=== PATIENT | female | born 1945 | race Caucasian/White ===

== ENCOUNTER → 2016-05-25 | Outpatient (CLI) | payer OTHER ==
[~2016-05-25] MED LIST: ALBU2.5V14 IH; ALPR0.25 PO; EZET10TA3 PO; FAMO-63 PO; FLUT16SP2 NS; IPRA15SP2 NS; LEVO75TA5 PO; LOSA25TA4 PO; OMEP40CA5 PO; ONDA4TAB10 PO
--- NOTE | 2016-05-25 15:41 | KCIC ---
PROCEDURE Abdomen radiograph. HISTORY Chronic gastritis without bleeding. Generalized abdominal pain. Pressure. Burning. COMPARISON None. FINDINGS AP view of the abdomen, 2 images. Bowel gas pattern is nonspecific, without evidence of obstruction. Moderate to large amount of colonic stool is seen. No gross pneumoperitoneum is identified. Cholecystectomy clips are present. Degenerative changes are present in spine. IMPRESSION 1. No evidence of bowel obstruction. 2. Moderate to large amount of colonic stool. Electronically signed by: Lake Valdez MD (May 25, 2016 15:40:08)
== END ==
LOC: KCIC 09:34
PROVIDERS: ATTEND Nurse Practitioner Family
DX: K29.50 Unspecified chronic gastritis without bleeding (principal)
CPT/HCPCS: 74000

== ENCOUNTER → 2017-09-23 | Outpatient (CLI) | payer OTHER | END | disposition home or self-care (01) | LOC: KCIC MAMMO 13:59 | DX: Z12.31 Encounter for screening mammogram for malignant neoplasm of breast (principal) | CPT/HCPCS: 77067 ==

== ENCOUNTER → 2020-08-09 | Outpatient (CLI) | payer MEDICARE ==
[~2020-08-09] MED LIST changes: +EZET10TA20 PO; -EZET10TA3 PO; -LOSA25TA4 PO; +LOSA25TA54 PO; +OMEP40CA45 PO; -OMEP40CA5 PO
--- NOTE | 2020-08-09 14:55 | KCIC ---
XR CHEST 2V History: Fall 2 days ago. Left-sided chest pain. Comparison: Chest x-ray 07/22/2014. Technique: PA and lateral chest radiographs. Findings: The lungs are mildly hyperinflated with flattening of the diaphragm. No airspace consolidation, pleur al effusion or pneumothorax. Cardiac silhouette is normal in size. Aortic arch calcifications. No acu te osseous abnormality is identified. Soft tissues are unremarkable. Impression: 1. No acute cardiopulmonary process. Electronically signed by: Javid Gonzales MD (08/09/2020 2:53 PM) [facility]
== END ==
LOC: KCIC 11:26
PROVIDERS: ATTEND Nurse Practitioner Gerontology
DX: R07.9 Chest pain, unspecified (principal)
CPT/HCPCS: 71046